=== PATIENT | male | born 1955 | race Caucasian/White ===

== ENCOUNTER 2016-12-23 17:50 | Inpatient (IN) | payer SELFPAY ==
[~2016-12-23] VITALS: Ht 175.3 cm; Wt 77.7 kg
[2016-12-23 18:00] VITALS: BP 109/72
[2016-12-23 18:30] VITALS: BP 101/65
[2016-12-23 20:00] VITALS: BP 113/66
[2016-12-23] MEDS ORDERED: ASPIRIN 81MG TABLET PO SCH (21:00)
[2016-12-23] MEDS ORDERED: CLOPIDOGREL 75MG TABLET PO SCH ×2 (21:00)
[2016-12-23] MEDS: ATORVASTATIN CALCIUM 40MG TABLET PO SCH (21:03)
[2016-12-23] MEDS: METOPROLOL TARTRATE 25MG TABLET PO SCH (21:05)
[2016-12-23 21:15] LABS: BASOPHILS % 0.5 % (0.0-2.0); EOSINOPHILS % 1.6 % (0.0-5.0); HEMATOCRIT. 39.3 % (42.0-52.0); HEMOGLOBIN. 13.5 g/dL (14.0-18.0); LYMPHOCYTES % 15.5 % (20.0-50.0); MEAN CORPUSCULAR HGB CONC 34.4 g/dL (31.0-37.0); MEAN CORPUSCULAR VOLUME 90.2 fL (80.0-94.0); MEAN PLATELET VOLUME 7.9 fl (7.4-10.4); MONOCYTES % 5.8 % (2.0-8.0); NEUTROPHILS % 76.6 % (40.0-76.0); PLATELET 234 x1000/uL (130-400); RED BLOOD CELL COUNT 4.36 mill/uL (4.7-6.1); RED CELL DISTRIBUTION WIDTH 12.9 % (11.6-14.6); WHITE BLOOD COUNT 7.5 x1000/uL (4.5-11.0)
[2016-12-23 21:25] LABS: D-DIMER 5.63 mg/L FEU (<0.50); PROTHROMBIN TIME 10.8 sec
[2016-12-23 21:28] LABS: ANION GAP 14; CARBON DIOXIDE 25 mEq/L (21-32); CHLORIDE 99 mEq/L (98-107); CREATINE KINASE 45 IU/L (39-308); CREATINE KINASE MB FRACTION < 0.5 ng/mL (0.5-3.6); INDEX HEMOLYSI 1 (1-3); INDEX ICTERIC 1 (1-4); INDEX LIPEMIC 1 (1-3); NT PRO B-TYPE NATRIURETIC PEP 217 pg/mL (5-125); TROPONIN I 0.18 ng/mL (0.00-0.04); UREA NITROGEN BLOOD 22 mg/dL (7-21); eGFR > 60 mL/min (>60)
[2016-12-23 22:00] VITALS: BP 106/60
[2016-12-24] VITALS (36 sets, daily range): BP systolic 94–153; BP diastolic 52–88
[2016-12-24] MEDS: CLOPIDOGREL 75MG TABLET PO SCH (09:00)
[2016-12-24] MEDS ORDERED: ASPIRIN 81MG TABLET PO SCH (09:00)
[2016-12-24] MEDS ORDERED: MIDAZOLAM HCL 2 MG/2 ML VIAL ONE (10:15)
[2016-12-24] MEDS ORDERED: FENTANYL CITRATE/PF 50MCG/ML 2ML VIAL ONE (10:15)
[2016-12-24] MEDS ORDERED: IOHEXOL-300 100 ML BOTTLE ONE ×2 (10:16→11:02)
[2016-12-24] MEDS ORDERED: LIDOCAINE HCL 1% 20ML VIAL (Pyxis) INJ ONE (10:16)
[2016-12-24] MEDS ORDERED: IOVERSOL 240MG/ML 100ML BOTTLE IV ONE (10:36)
[2016-12-24] MEDS ORDERED: HEPARIN SODIUM 1,000 UNIT/1ML VIAL IV ONE ×2 (10:37→10:49)
[2016-12-24] MEDS ORDERED: CLOPIDOGREL 75MG TABLET ONE (11:21)
[2016-12-24] MEDS ORDERED: ASPIRIN 325MG TABLET ONE (11:21)
[2016-12-24] MEDS ORDERED: SODIUM CHLORIDE 0.9% 1,000 ML IV SCH ×2 (11:30→20:00)
[2016-12-24] MEDS ORDERED: ATROPINE SULFATE 1MG/10ML SYR IV PRN (11:30)
[2016-12-24] MEDS ORDERED: ACETAMINOPHEN 325MG TABLET PO PRN (11:30)
[2016-12-24] MEDS ORDERED: CLOPIDOGREL 75MG TABLET PO ONE (11:30)
[2016-12-24] MEDS: METOPROLOL TARTRATE 25MG TABLET PO SCH ×2 (12:01→23:00)
[2016-12-24] MEDS: LISINOPRIL 5MG TABLET PO SCH (12:01)
[2016-12-24] MEDS: FOLIC ACID 1MG TABLET PO SCH (12:04)
[2016-12-24] MEDS: ATORVASTATIN CALCIUM 40MG TABLET PO SCH (21:10)
[2016-12-24] MEDS: HYDROCODONE/ACETAMINOPHEN 5/325MG TABLET PO PRN (21:11)
[2016-12-25] VITALS (10 sets, daily range): BP systolic 96–144; BP diastolic 51–73
[2016-12-25] MEDS: HYDROCODONE/ACETAMINOPHEN 5/325MG TABLET PO PRN (05:31)
[2016-12-25 06:19] LABS: BASOPHILS % 0.5 % (0.0-2.0); EOSINOPHILS % 2.6 % (0.0-5.0); HEMATOCRIT. 36.3 % (42.0-52.0); HEMOGLOBIN. 12.2 g/dL (14.0-18.0); LYMPHOCYTES % 16.9 % (20.0-50.0); MEAN CORPUSCULAR HEMOGLOBIN 30.6 pg (28.0-32.0); MEAN CORPUSCULAR HGB CONC 33.6 g/dL (31.0-37.0); MONOCYTES % 8.9 % (2.0-8.0); NEUTROPHILS % 71.1 % (40.0-76.0); PLATELET 240 x1000/uL (130-400); RED BLOOD CELL COUNT 3.99 mill/uL (4.7-6.1); RED CELL DISTRIBUTION WIDTH 12.7 % (11.6-14.6); WHITE BLOOD COUNT 7.8 x1000/uL (4.5-11.0)
[2016-12-25 07:16] LABS: ANION GAP 14; CALCIUM 8.7 mg/dL (8.5-10.1); CARBON DIOXIDE 26 mEq/L (21-32); CHLORIDE 102 mEq/L (98-107); INDEX HEMOLYSI 1 (1-3); INDEX ICTERIC 1 (1-4); INDEX LIPEMIC 1 (1-3); UREA NITROGEN BLOOD 18 mg/dL (7-21); eGFR > 60 mL/min (>60)
[2016-12-25] MEDS: METOPROLOL TARTRATE 25MG TABLET PO SCH (08:25)
[2016-12-25] MEDS: CLOPIDOGREL 75MG TABLET PO SCH (08:25)
[2016-12-25] MEDS: LISINOPRIL 5MG TABLET PO SCH (08:26)
[2016-12-25] MEDS: FOLIC ACID 1MG TABLET PO SCH (08:26)
[2016-12-25] MEDS ORDERED: ASPIRIN 325MG TABLET PO SCH (09:00)
== END 2016-12-25 14:45 | disposition home or self-care (01) | DRG 174 ==
LOC: 3WST 17:50
PROVIDERS: ADMIT Hospitalist; ATTEND Hospitalist
PROC: 027035Z Dilation of Coronary Artery, One Artery with Two Drug-eluting Intraluminal Devices, Percutaneous Approach (ICD-10-PCS; principal; 2016-12-24)
PROC: 4A023N7 Measurement of Cardiac Sampling and Pressure, Left Heart, Percutaneous Approach (ICD-10-PCS; 2016-12-24)
PROC: B2111ZZ Fluoroscopy of Multiple Coronary Arteries using Low Osmolar Contrast (ICD-10-PCS; 2016-12-24)
PROC: 02703ZZ Dilation of Coronary Artery, One Artery, Percutaneous Approach (ICD-10-PCS; 2016-12-24)
DX: I21.4 Non-ST elevation (NSTEMI) myocardial infarction (principal); I10 Essential (primary) hypertension; F10.10 Alcohol abuse, uncomplicated; I25.10 Atherosclerotic heart disease of native coronary artery without angina pectoris
CPT/HCPCS: 36415; 80048; 82550; 82553; 83036; 83880; 84484; 85025; 85347; 85379; 85610; 85730; 92928; 93005; 93306; 93454; C1725; C1726; C1769; C1887; C1893; J1644; J2250; J3010; J3490; J7030; Q9967